=== PATIENT | female | born 1970 | race Two or more races ===

== ENCOUNTER → 2018-08-22 | Outpatient (CLI) | payer OTHER | END | disposition home or self-care (01) | LOC: SONOGRAMA 11:59 | DX: E04.8 Other specified nontoxic goiter (principal) ==

== ENCOUNTER 2020-07-28 05:40 | Day surgery (SDC) | payer OTHER | END 2020-07-28 11:40 | disposition home or self-care (01) | LOC: AMB-ENDOS 05:40 | PROVIDERS: ATTEND Surgery | DX: K62.89 Other specified diseases of anus and rectum (principal); K64.8 Other hemorrhoids; Z20.822 Contact with and (suspected) exposure to COVID-19; Z12.11 Encounter for screening for malignant neoplasm of colon ==